=== PATIENT | female | born 1970 | race Caucasian/White ===

== ENCOUNTER 2023-05-30 06:28 | Emergency (ER) | payer BC, SELFPAY ==
[2023-05-30] VITALS (13 sets, daily range): BP systolic 114–191; BP diastolic 73–110; BMI 26.1
[2023-05-30 07:22] LABS: % Basophils 0.5 % (0-2); % Eosinophils 0.5 % (0-6); % Immature Granulocytes 0.4 % (0-0.5); % Lymphocytes 23.4 % (20.5-51.1); % Monocytes 6.8 % (1.7-9.3); % Neutrophils 68.4 % (42.2-75.2); Absolute Lymphocytes 1.9 10^3/uL (1.2-3.4); Absolute Monocytes 0.6 10^3/uL (0.1-0.6); Absolute Neutrophils 5.6 10^3/uL (1.4-6.5); Hematocrit 41.4 % (37.0-47.0); Hemoglobin 14.3 g/dL (12.0-16.0); Mean Corp Hgb Conc. 34.5 g/dL (33.0-37.0); Mean Corpuscular Hgb 29.8 pg (27.0-31.0); Mean Corpuscular Volume 86.3 fL (81.0-99.0); Mean Platelet Volume 10.5 fL (7.4-10.4); Nucleated Red Blood Cells % 0 %; Platelet Count 244 10^3/uL (130-400); White Blood Cell Count 8.1 10^3/uL (4.8-10.8)
[2023-05-30 07:29] LABS: ALT (SGPT) 25 U/L (0-35); AST (SGOT) 28 U/L (14-36); Albumin 5.3 g/dl (3.5-5.0); Alkaline Phosphatase 67 U/L (38-126); Blood Urea Nitrogen 13 mg/dl (7-17); Calcium 10.1 mg/dl (8.4-10.2); Carbon Dioxide 18 mmol/L (22-30); Chloride 108 mmol/L (98-107); Estimated Creatinine Clearance 100 ml/min; Glucose 103 mg/dl (70-99); Sodium 142 mmol/L (135-145); Total Bilirubin 0.6 mg/dl (0.2-1.3); Total Protein 8.2 g/dl (6.3-8.2); eGFR > 60.00
[2023-05-30] MEDS: ATIVAN 1 MG IV (07:32)
[2023-05-30] MEDS: NSS 1000 IV (07:32)
[2023-05-30 07:40] LABS: Troponin I < 0.012 ng/ml
--- NOTE | 2023-05-30 08:09 | ED.GENMED ---
History of Present Illness
General
Chief Complaint: Chest Pain
Source: patient and spouse
Exam Limitations: none
Time Seen by Provider: 05/30/23 06:55
Travel History
Have you had any contact with someone who has COVID-19?: No
Do you have any symptoms of coronavirus? Fever > 100 degrees, chills, cough, shortness of breath, sore throat, loss of taste or smell, muscle aches, or headache?: No
History of Present Illness
History of Present Illness:
52-year-old female who presents with chest tightness. The patient woke up at 6 AM. Patient states she then began to get anxious. On my arrival to the room the patient is breathing in and out of a paper bag. Patient states she did drink 2 energy
drinks last night around 8 PM. Patient is unsure if her chest tightness is from anxiety or something else but she states it got her worked up.
Patient denies any recent exertional chest pain. She is not a smoker.
Past History
Past History
ED Past Medical History: Psychiatric (depression)
ED Past Surgical History: None
Social History
Tobacco: Non-smoker
Alcohol: None
Drug: None
Personal:
Living: with family
Phy Exam
Physical Exam
Physical Exam:
CONSTITUTIONAL Patient alert and oriented to person, place and time. Well-appearing. Vital signs reviewed.
HEAD atraumatic, normocephalic.
EYES eyelids normal to inspection, Pupils equally round and reactive to light, Extraocular muscles intact, Conjunctiva normal, Sclera normal.
NECK normal range of motion, Trachea midline, no jugular venous distention.
RESPIRATORY CHEST No respiratory distress noted, Chest expansion equal, Bilateral breath sounds clear.
CARDIOVASCULAR regular and tachycardic, Heart sounds normal.
ABDOMEN abdomen nontender, Bowel sounds normal. No distention.
BACK normal inspection, no obvious deformities
UPPER EXTREMITY range of motion normal, Motor strength normal, no cyanosis, no edema.
LOWER EXTREMITY range of motion normal, Motor strength normal, no cyanosis, no edema.
NEURO Speech normal, No focal motor deficits, Megan coma scale 15, Memory normal, Cranial Nerves intact to screening exam.
SKIN skin warm, dry, and normal in color.
PSYCHIATRIC patient oriented to person place and time, Normal affect.
Scores
Heart Score for Chest Pain Patients
STEMI patient?: No
History: Slightly or Non-Suspicious
ECG: Nonspecific Repolarization
Age: >45 - <65 years
Risk Factors: No Risk Factors
Troponin: </= Normal Limit
Heart Score for Chest Pain Patients: 2
Heart Score Risk: 2.5% MACE over next 6 weeks
Course
Orders/Labs/Results
Orders:
Orders
05/30/23 06:31
ECG [Electrocardiogram (*1)] Urgent
Reason for Study: Chest Pain
Cardiology Consult: Unknown
EKG- Treatment ONCE
05/30/23 07:07
Complete Blood Count/With Diff Urgent
Comprehensive Metabolic Panel Urgent
Troponin I Urgent
05/30/23 07:23
0.9% Sodium Chloride 1000 ml [Nss] 1,000 ml IV BOLUS
Lorazepam [Ativan] 1 mg IV NOW STA
05/30/23 07:51
Electrocardiogram (*1) Urgent
Reason for Study: Chest Pain
EKG- Treatment ONCE
05/30/23 08:06
Nitroglycerin Sublingual [Nitrostat (Sublingual)] 0.4 mg SL [id number] PRN
05/30/23 08:15
Electrocardiogram (*1) Urgent
Reason for Study: Bradycardia / Tachycardia
EKG- Treatment ONCE
05/30/23 08:25
CR Chest - 2 Views Urgent
Comment:
Reason For Exam: cp
05/30/23 08:52
Potassium Chloride [KCl] 40 meq PO NOW STA
05/30/23 09:50
Troponin I Urgent
05/30/23 11:08
Electrocardiogram (*1) Urgent
Reason for Study: Chest Pain
EKG- Treatment ONCE
Abnormal Lab Results
05/30/23
07:07
MPV 10.5 H fL
(7.4-10.4)
Potassium 3.0 L mmol/L
(3.5-5.1)
Chloride 108 H mmol/L
(98-107)
Carbon Dioxide 18 L mmol/L
(22-30)
Glucose 103 H mg/dl
(70-99)
Albumin 5.3 H g/dl
(3.5-5.0)
05/30/23 07:07
05/30/23 07:07
Vital Signs
Initial and Last Documented VS:
Initial Vital Signs
Temp Pulse Resp BP Pulse Ox
98.9 F 150 20 191/110 100
05/30/23 06:46 05/30/23 06:46 05/30/23 06:46 05/30/23 06:46 05/30/23 06:46
Last Documented Vital Signs
Temp Pulse Resp BP Pulse Ox
98.9 F 108 11 114/73 97
05/30/23 06:46 05/30/23 12:00 05/30/23 12:00 05/30/23 12:00 05/30/23 12:00
MDM/Problems Addressed
MDM/Problems Addressed:
Chest pain, abnormal EKG, tachycardia
*Radiology
Radiology exam reviewed: all reviewed NAD by ED Provider
*Pulse Oximetry
Patient hypoxic: no
*EKG
Interpreted by ED Provider?: Yes
Interpretation: abnormal
Rate: tachycardiac
Rhythm: sinus
[place]: normal axis
Ischemia: other (T wave versions inferior-lateral leads.)
*Wild Life Manager Interpretation
Rate: tachycardiac
Interpretation: abnormal
Rhythm: sinus
*Critical Care Note
Total Time (30-74mins, 75-104mins- exclusive of procedures): 30 minutes
Data Reviewed
Source: patient and spouse
Prescriptions/Medications Considered But Not Given:
Considered heparin but troponins negative
Further Testing Considered But Not Given:
Consider PE testing no clinical risks. No hypoxia. No shortness of breath. No signs of DVT.
Patient Management
Discussion with other providers: Electronics Processing Supervisor (Case discussed with Dr. Diaz)
Escalation/DeEscalation of care consider admission/obs:
Patient feels much improved. She certainly was quite anxious on arrival but her tachycardia persisted. Trialed nitroglycerin which did not help her symptoms. She has had continuous symptoms since the morning and despite that 2 troponins are
completely negative. Patient was seen and evaluated by cardiology. He does not recommend any further testing but will arrange outpatient workup in light of abnormal EKG when compared to 2019. Question whether this is just related to tachycardia
due to taking 2 energy drinks last night. No PE risks. Outpatient follow with cardiology as planned by Dr. Diaz
ED Attending Note
-
Portions of this chart may have been created with voice recognition software.� Occasional wrong word or��sound alike� substitutions may have occurred due to the inherent limitations of voice recognition software.
Discharge Plan
Departure
Patient Disposition: Home (Routine Discharge)
Date of Disposition: 05/30/23
Time of Disposition: 12:29
Patient with high blood pressure during this ER visit?: No
Discharge Problem:
Chest pain
Instructions: Chest Pain DCA Follow Up
Prescriptions:
No Action
Nasocort
2 spray intranasal HS
mesalamine [Lialda] 1.2 GM tablet,delayed release (DR/EC)
3.6 g PO HS
mupirocin 1 GRAM ointment
0 g intranasal BID
aprepitant [Emend] 40 MG capsule
40 mg PO ONCE
hydrocodone-acetaminophen 1 TABLET tablet
2 tab PO Q4HPRN PRN (Reason: moderate to severe pain) 0RF
hydrocodone-acetaminophen 1 TABLET tablet
1 tab PO Q4HPRN PRN (Reason: mild reason) 0RF
cefdinir [Omnicef] 300 MG capsule
300 mg PO BID 5 Days Qty: 10 0RF
Referrals:
Diane Cantu MD [Family Provider] -
Activity Restrictions/Additional Instructions:
Please take 81 mg of aspirin a day. Please avoid strenuous or exertional activity until cleared by cardiology. Please see cardiology in the next 48 hours for reevaluation. Return immediately for worsening pain, shortness breath, palpitations,
sweating, nausea, weakness of any kind, numbness, tingling or any other concerns.
Cardiology has been notified and a follow up appointment has been requested. Someone will call you on the next business day to schedule a follow up appointment.
Interventions
Interventions:
*Risk Screen - Suicide Last Done: 05/30/23 06:46
*General Assessment Last Done: 05/30/23 06:46
*Neglect/Abuse Screening Last Done: 05/30/23 06:46
ED- Fall Risk Assessment Last Done: 05/30/23 06:46
*ED COVID-19 Vaccine History Last Done: 05/30/23 06:46
*Nursing Disposition Last Done: 05/30/23 12:42
ED- Cardiac Assessment Last Done: 05/30/23 07:04
ED- Pulmonary Assessment Last Done: 05/30/23 07:04
Discharge Date and Time
Discharge Date/Time: 05/30/23 12:52
[2023-05-30] MEDS: NITROSTAT (SUBLINGUAL) 0.400000000000000022 MG SL (08:10)
[2023-05-30] MEDS: KCL 40 MEQ PO (08:58)
[2023-05-30 10:22] LABS: Troponin I < 0.012 ng/ml
--- NOTE | 2023-05-30 13:17 | CON.CAR ---
Consultation
Consultation Request
Date/Time Consultation Requested: 05/30/2023 10: 00
Date/Time Consultation Performed: 05/30/2023 13: 00
Requesting Provider: Leeann
Performing Provider: Joe
Reason for Consultation: Chest pain
Medical History
-
Chief Complaint: Chest pain, palpitation
History of Present Illness:
Brittani has a history of hypertension, ulcerative colitis, GERD. She presents for evaluation of chest pain and palpitations. She was very active and exercising until she got COVID in January 2023. She is able to climb steps without chest pain but
does have dyspnea on exertion with steps. She had an energy drink last night with a shot of vodka. She had nausea and vomiting 4 hours later but felt better. She woke up at 6 AM this morning with pressure in her chest. This was followed by a
racing heart. She came to the ER. reports heart rate was 180 but an EKG was [address]-T wave changes. Of note she was given nitroglycerin without change in her discomfort. Heart rate went up to 150 with nitroglycerin. She got Valium
and felt much better. She still has some discomfort but feels much improved.
She admits to a 20 pound weight gain in the past year.
Past Medical History
Past Medical History: GERD, HTN and Other (Ulcerative colitis)
Past Surgical History: Tonsilectomy and Other (Status postnasal septoplasty chronic sinusitis, D&C, neck lift)
Social History
Tobacco: Non-Smoker
Alcohol: Occasional
Drug: None
Personal:
Living: With Family
Employment: Employed
Family History
Family History: Other (Mother had heart disease in her 50s but did smoke and also had AAA, father has hypertension and is in his 80s)
Allergies / Home Medications
Allergy/AdvReac Type Severity Reaction Status Date / Time
sertraline HCl [From Zoloft] Allergy Massive Verified 05/30/23 06:46
Panic
Attack
seasonal Allergy nasal Uncoded 05/30/23 06:46
congestion
Medication Instructions Recorded Confirmed Type
Nasocort 2 spray intranasal HS 10/19/13 05/24/17 History
mesalamine 1.2 gram tablet,delayed 3.6 g PO HS 05/11/17 05/24/17 History
release (Lialda)
aprepitant 40 mg capsule (Emend) 40 mg PO ONCE 05/24/17 05/24/17 History
cefdinir 300 mg capsule (Omnicef) 300 mg PO BID 5 days #10 caps 05/24/17 Rx
hydrocodone 5 mg-acetaminophen 325 1 tab PO Q4HPRN PRN mild reason 05/24/17 Rx
mg tablet
hydrocodone 5 mg-acetaminophen 325 2 tab PO Q4HPRN PRN moderate to 05/24/17 Rx
mg tablet severe pain
mupirocin 2 % topical ointment 0 g intranasal BID 05/24/17 05/24/17 History
Review of Systems
-
History Source: Patient
All other systems: Negative unless noted
Constitutional: No Symptoms
EENT: No Symptoms
Respiratory: No Symptoms
Cardiac: Chest Pain and Palpitations
Abdomen/GI: Nausea and Vomiting
: No Symptoms
Musculoskeletal: No Symptoms
Skin: No Symptoms
Neurological: No Symptoms
Endocrine: No Symptoms
Hematologic/Lymphatic: No Symptoms
Physical Exam
Vital Signs
Temp Pulse Resp BP Pulse Ox
98.9 F 108 11 114/73 97
05/30/23 06:46 05/30/23 12:00 05/30/23 12:00 05/30/23 12:00 05/30/23 12:00
General: Well developed, well nourished in NAD.
Neck: Supple, no JVD, HJR, carotids +2 B/L, no bruits bilaterally.
Heart: Non displaced PMI, RRR, no murmurs, No S3, S4, no rubs.
Lungs: Clear to auscultation bilaterally, no wheeze, rhonchi, rubs bilaterally,
normal expiratory phase.
Abdomen: Normal bowel sounds, soft, non-tender, non-distended.
Extremities: No clubbing, cyanosis or edema bilaterally.
Neuro: Grossly nonfocal, awake, alert and oriented x3.
Lab Results
05/30/23 07:07
05/30/23 07:07
Troponin I < 0.012 ng/ml 05/30/23 09:50
Impression / Plan
-
Impression:
Chest discomfort
Palpitations/sinus tachycardia
Abnormal ECG
History of GERD
History of hypertension
History of ulcerative colitis
Family history of AAA
Hypokalemia
Echocardiogram January 2017: Normal ejection fraction, mild to moderate TR
Plan:
Chest pain was prolonged with undetectable troponins x 2
Etiology unclear but likely noncardiac
Stable cardiology status for discharge
ECG findings are nonspecific and of note 1/3 females can have abnormal ECG with tachycardia during stress test that is a false positive
Will arrange for outpatient exercise sestamibi stress test
Will check echocardiogram
Our office will schedule these test and arrange follow-up in our office in the meantime she will watch for tachycardia on her Apple watch
Would not treat tachycardia well but if remains hypertensive could consider low-dose calcium brunilda or low-dose beta-brunilda.
Data Reviewed
-
EKG: Tracing Personally Visualized and interpreted
Radiology: Report Reviewed by me
Medical Tests (Nuc Med, Echo etc): Report Reviewed by me
Labs: Labs Reviewed by me
Old Records: Reviewed
== END 2023-05-30 12:52 | disposition home or self-care (01) ==
LOC: EMR 06:28
PROVIDERS: EMERGENCY PHYSICIAN Emergency Medicine; FAMILY PHYSICIAN Student in an Organized Health Care Education/Training Program; OTHER PHYSICIAN Internal Medicine Cardiovascular Disease
DX: R07.89 Other chest pain (principal)
CPT/HCPCS: 99285; 96374; 96361; 71046; 80053; 84484; 85025; 93005

== ENCOUNTER → 2023-06-15 06:50 | Outpatient (REF) | payer BC, SELFPAY | LOC: RCS 06:50 | PROVIDERS: ATTENDING PHYSICIAN Internal Medicine Cardiovascular Disease; FAMILY PHYSICIAN Physician Assistant | DX: R07.89 Other chest pain (principal); R94.31 Abnormal electrocardiogram [ECG] [EKG] | CPT/HCPCS: 78452; 93017; A9500 ==

== ENCOUNTER → 2023-06-23 14:48 | Outpatient (REF) | payer BC, SELFPAY | LOC: RCS 14:48 | PROVIDERS: ATTENDING PHYSICIAN Internal Medicine Cardiovascular Disease; FAMILY PHYSICIAN Physician Assistant | DX: R07.89 Other chest pain (principal); R94.31 Abnormal electrocardiogram [ECG] [EKG] | CPT/HCPCS: 93306 ==

== ENCOUNTER → 2024-07-17 13:50 | Outpatient (REF) | payer OTHER, SELFPAY | LOC: RAD 13:50 | PROVIDERS: ATTENDING PHYSICIAN Physician Assistant | DX: M54.50 Low back pain, unspecified (principal); M25.551 Pain in right hip | CPT/HCPCS: 72110; 73502 ==

== ENCOUNTER → 2024-08-14 13:59 | Outpatient (REF) | payer OTHER, SELFPAY | LOC: WDC 13:59 | PROVIDERS: ATTENDING PHYSICIAN Student in an Organized Health Care Education/Training Program | DX: Z12.31 Encounter for screening mammogram for malignant neoplasm of breast (principal); Z82.62 Family history of osteoporosis; N95.1 Menopausal and female climacteric states | CPT/HCPCS: 77063; 77067; 77080 ==

== ENCOUNTER → 2024-08-17 13:25 | Outpatient (REF) | payer OTHER, SELFPAY | LOC: HWRAD 13:25 | PROVIDERS: ATTENDING PHYSICIAN Student in an Organized Health Care Education/Training Program | DX: N95.0 Postmenopausal bleeding (principal) | CPT/HCPCS: 76830; 76856 ==

== ENCOUNTER 2024-08-22 17:07 | Outpatient (RCR) | payer OTHER, SELFPAY | END 2024-08-22 23:59 | disposition home or self-care (01) | LOC: RPT 17:07 | PROVIDERS: ATTENDING PHYSICIAN Physical Medicine & Rehabilitation; FAMILY PHYSICIAN Internal Medicine | DX: M54.16 Radiculopathy, lumbar region (principal); M51.360 Other intervertebral disc degeneration, lumbar region with discogenic back pain only; Z73.6 Limitation of activities due to disability | CPT/HCPCS: 97110; 97112; 97161 ==

== ENCOUNTER 2024-09-18 11:11 | Outpatient (RCR) | payer OTHER, SELFPAY | END 2024-09-18 23:59 | disposition home or self-care (01) | LOC: RPT 11:11 | PROVIDERS: ATTENDING PHYSICIAN Physical Medicine & Rehabilitation; FAMILY PHYSICIAN Internal Medicine | DX: M54.16 Radiculopathy, lumbar region (principal); M51.360 Other intervertebral disc degeneration, lumbar region with discogenic back pain only; Z73.6 Limitation of activities due to disability | CPT/HCPCS: 97110; 97112 ==

== ENCOUNTER → 2024-10-17 13:02 | Outpatient (REF) | payer OTHER, SELFPAY | LOC: RAD 13:02 | PROVIDERS: ATTENDING PHYSICIAN Nurse Practitioner Adult Health; FAMILY PHYSICIAN Student in an Organized Health Care Education/Training Program | DX: N95.0 Postmenopausal bleeding (principal) | CPT/HCPCS: 76830; 76856 ==

== ENCOUNTER 2024-10-23 14:03 | Outpatient (RCR) | payer OTHER, SELFPAY | END 2024-10-23 23:59 | disposition home or self-care (01) | LOC: RPT 14:03 | PROVIDERS: ATTENDING PHYSICIAN Physical Medicine & Rehabilitation; FAMILY PHYSICIAN Internal Medicine | DX: M54.16 Radiculopathy, lumbar region (principal); M51.360 Other intervertebral disc degeneration, lumbar region with discogenic back pain only; Z73.6 Limitation of activities due to disability | CPT/HCPCS: 97110; 97112 ==